=== PATIENT | male | born 1950 | race Caucasian/White ===

== ENCOUNTER 2018-12-31 09:39 | Emergency (ER) | payer OTHER ==
[~2018-12-31] VITALS: Ht 177.8 cm; Wt 75.0 kg
[2018-12-31 09:43] VITALS: Ht 177.8 cm; Wt 75.0 kg
[2018-12-31 10:26] LABS: CALC OSMOLALITY 282 mosm/kg (275-300); CALCIUM 8.3 mg/dL (8.5-10.1); CARBON DIOXIDE 25.7 mmol/L (21.0-32.0); CHLORIDE - SERUM 106 mmol/L (98-107); CREATININE - SERUM 0.8 mg/dL (0.6-1.3); GLUCOSE 129 mg/dL (74-106); POTASSIUM - SERUM 3.7 mmol/L (3.5-5.1); SODIUM 141 mmol/L (136-145); UREA NITROGEN 12 mg/dL (7-18); eGFR NON AFRICAN AMERICAN > 90 mL/min (90-120)
[2018-12-31 10:28] LABS: BASOPHILS 1.2 % (0-2); EOSINOPHILS 2.2 % (0-7); HEMATOCRIT 44.5 % (42.0-54.0); HEMOGLOBIN 15.1 g/dL (13.5-17.5); LYMPHOCYTES 53.1 % (15-50); MCH 30.4 pg (26.0-34.0); MCHC 33.9 g/dL (31.0-37.0); MCV 89.7 fL (80.0-100.0); MEAN PLATELET VOLUME 8.7 fL (7.4-10.4); MONOCYTES 14.5 % (2-11); PLATELET COUNT 221 10x3/uL (130-400); RBC 4.96 10x6/uL (4.20-6.10); RDW 14.3 % (11.5-14.5)
[2018-12-31 10:40] LABS: ALBUMIN 3.8 g/dL (3.4-5.0); ALKALINE PHOSPHATASE 83 U/L (46-116); ALT (SGPT) 18 U/L (10-68); BILIRUBIN - TOTAL 0.61 mg/dL (0.2-1.3); LIPASE 635 U/L (73-393); MAGNESIUM - SERUM 2.3 mg/dL (1.8-2.4); PRO BNP 72 pg/mL (0-125); PROTEIN - SERUM 7.2 g/dL (6.4-8.2)
[2018-12-31 10:41] LABS: TROPONIN-I < 0.017 ng/mL (0.000-0.060)
[2018-12-31 11:30] LABS: APPEARANCE CLEAR (CLEAR); BILIRUBIN NEGATIVE (NEGATIVE); COLOR YELLOW (YELLOW); GLUCOSE NEGATIVE (NEGATIVE); KETONE NEGATIVE (NEGATIVE); NITRITE NEGATIVE (NEGATIVE); PROTEIN NEGATIVE (NEGATIVE); SPECIFIC GRAVITY 1.005 (1.005-1.020); UROBILINOGEN NORMAL (NORMAL)
[2018-12-31] MEDS ORDERED: ATIVAN1 MG PO (14:06)
[2018-12-31] MEDS ORDERED: ZOFRAN ODT4 MG/UDTAB PO (14:06)
[2018-12-31 14:36] VITALS: BP 123/76
== END 2018-12-31 14:36 | disposition home or self-care (01) ==
LOC: D.ER 09:39
PROVIDERS: Family Medicine
DX: R42 Dizziness and giddiness (principal); R11.2 Nausea with vomiting, unspecified

== ENCOUNTER → 2019-06-21 11:03 | Outpatient (CLI) | payer MEDICARE ==
[2018-12-31 09:43] VITALS: BMI 23.7
[~2019-06-21 11:03] MED LIST: ATIVAN1 MG PO; ZOFRAN ODT4 MG/UDTAB PO
== END | disposition home or self-care (01) ==
LOC: D.MRI 11:03
PROVIDERS: ATTEND Family Medicine
DX: M50.021 Cervical disc disorder at C4-C5 level with myelopathy (principal)

== ENCOUNTER 2020-06-04 06:48 | Day surgery (SDC) | payer MEDICARE, OTHER ==
--- NOTE | 2020-06-03 10:10 | NUR ---
CONFIRMED PT APPT FOR 06/04/20 NPO: PT VERBALIZED UNDERSTANDING NOTHING TO EAT OR DRINK AFTER MIDNIGHT. MAY TAKE MORNING MEDS WITH A SIP OF WATER PELT SHEARER: YES ARRIVAL TIME: 0630 THINNERS: NONE
[~2020-06-04] VITALS: Ht 177.8 cm; Wt 75.0 kg
[2020-06-04 07:07] LABS: HEMATOCRIT 40.1 % (42.0-54.0); HEMOGLOBIN 13.5 g/dL (13.5-17.5); IMMATURE GRANULOCYTES 0.4 % (0-5); LYMPHOCYTE ABS# 0.93 10x3/uL (1.32-3.57); MCH 29.7 pg (26.0-34.0); MCHC 33.7 g/dL (31.0-37.0); MCV 88.3 fL (80.0-100.0); MEAN PLATELET VOLUME 8.4 fL (7.4-10.4); NEUTROPHIL ABS# 0.92 10x3/uL (1.78-5.38); PLATELET COUNT 177 10x3/uL (130-400); RBC 4.54 10x6/uL (4.20-6.10); RDW 14.1 % (11.5-14.5); WBC 2.5 10x3/uL (4.8-10.8)
[2020-06-04 07:40] LABS: CALC OSMOLALITY 282 mosm/kg (275-300); CALCIUM 8.3 mg/dL (8.5-10.1); CARBON DIOXIDE 25.2 mmol/L (21.0-32.0); CHLORIDE - SERUM 107 mmol/L (98-107); CREATININE - SERUM 0.9 mg/dL (0.6-1.3); GLUCOSE 96 mg/dL (74-106); POTASSIUM - SERUM 3.7 mmol/L (3.5-5.1); SODIUM 140 mmol/L (136-145); UREA NITROGEN 25 mg/dL (7-18); eGFR NON AFRICAN AMERICAN 89 mL/min (90-120)
[2020-06-04] MEDS ORDERED: TRIAMTERENE-HC1 EAC3 PO (08:27)
[2020-06-04] MEDS ORDERED: MOBIC7.5 MG PO (08:27)
[2020-06-04 08:38] VITALS: BP 111/68; Ht 177.8 cm; Wt 75.0 kg
[2020-06-04 09:16] LABS: APTT 30.9 SECONDS (22.8-39.4)
[2020-06-04 11:00] LABS: INR 1.2 (0.85-1.17)
[2020-06-04 12:15] LABS: EOSINOPHILS 4 % (0-7); LYMPHOCYTES 33 % (15-50); MONOCYTES 17 % (2-11); NEUTROPHILS 43 % (40-80); PLATELET ESTIMATE NORMAL; ROULEAUX OCC
--- NOTE | 2020-06-04 14:40 | NUR ---
1430 IR SAW PT DRAINAGE AND NO ORDERS GIVEN.
== END 2020-06-04 14:41 | disposition home or self-care (01) ==
LOC: D.SP 06:48 → D.CT 09:00 → D.SP 09:00
PROVIDERS: Specialist; ATTEND Internal Medicine Hematology & Oncology
DX: D70.8 Other neutropenia (principal); M32.9 Systemic lupus erythematosus, unspecified; M48.02 Spinal stenosis, cervical region; Z68.24 Body mass index [BMI] 24.0-24.9, adult; H81.03 Meniere's disease, bilateral; Z01.89 Encounter for other specified special examinations